=== PATIENT | male | born 1995 | race Caucasian/White ===

== ENCOUNTER 2016-07-04 08:58 | Outpatient (CLI) ==
[2015-07-14 10:41] VITALS: BMI 27.7
--- NOTE | 2016-07-04 12:20 | MRI ---
EXAM: MRI right knee without contrast. HISTORY: Chronic pain right knee. Mainly around kneecap. No known recent injury. May have injure d 3 years ago jumping [place]. No right knee surgery.. TECHNIQUE: Using a local extremity coil on a high field strength magnet multiplanar multisequence m agnet resonance imaging was performed of the right knee without intravenous or intra-articular gadol inium contrast. COMPARISON: Four view plain film examination right knee 07/14/2015. FINDINGS: Within the medial compartment medial meniscus is intact without discrete surfacing menisc al tear. Medial compartment cartilage congruent and without underlying subchondral edema.. Within the lateral compartment the lateral meniscus is intact without discrete surfacing meniscal te ar. The lateral compartment cartilage congruent without focal underlying subchondral edema. Within the patellofemoral compartment the patella seated with intact patellar attachment of the medi al and lateral patellar retinaculum. Some artifacts seen within the subcutaneous soft tissues overl patrick the lateral patellar retinaculum. Correlate with operative history or for foreign body. Focal chondrosis over the medial facet the patella with some blistering/fissuring. The trochlear groove cartilage otherwise congruent without underlying subchondral edema. Physiologic amount of fluid right knee joint. No osteochondral loose bodies. Intact anterior and p osterior cruciate ligament fibers. Question mucoid degeneration anterior cruciate ligament and/or s equelae of prior sprain. Anterior cruciate ligament ganglion formation proximally. No anterior scott slation of the tibia with respect to the femur. The extensor mechanism is intact. Proximal patella r tendinosis. The medial collateral ligament as well as lateral collateral ligament complex and pos terolateral corner intact. Artifact within the subcutaneous soft tissues anterior medially at the jem int line. Correlate with operative history or for foreign body. IMPRESSION: No discrete surfacing meniscal tear. 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 Question mucoid degeneration anterior cruciate ligament and/or sequelae of prior sprain. Anterior c ruciate ligament ganglion formation proximally. Intact PCL. No anterior translation of the tibia w ith respect to the femur. Proximal patellar tendinosis. Artifact within the subcutaneous soft tissues anterolaterally and anteromedially. Correlate with op erative history or for foreign body.
== END 2016-07-04 08:59 | disposition home or self-care (01) ==
LOC: RAD 08:58
PROVIDERS: ATTEND Nurse Practitioner Family
DX: M25.561 Pain in right knee (principal)

== ENCOUNTER 2016-12-24 14:10 | Emergency (ER) ==
[2016-12-24 14:13] VITALS: BP 135/85; TEMP 98.1; BMI 25.7
--- NOTE | 2016-12-24 14:30 | ED.PDOC ---
General ED Provider: Dr. RAMIREZ [place] Chief Complaint: Chest Wall Injury/Pain Stated Complaint: right anterior lower chest wall pain x 4 days. No known trauma. Increased pain with breathing. No cough. No other respiratory symptoms. No fever or chills. No nausea or vomiting. No abdominal symptoms. Time Seen by Physician: 14:55 Mode of Arrival: Walk-In Information Source: Patient Exam Limitations: No limitations [facility] Documentation Reviewed and Agree: Yes Respiratory Complaint Exam - Respiratory Complaint/Exam Onset/Duration: 4 days Symptoms Are: Still present Timing: Constant Initial Severity: Moderate Current Severity: Moderate Location: Chest Aggravating: Reports: Exertion, Deep breaths Alleviating: Reports: None Associated Signs and Symptoms: Reports: Chest pain (left anterior chest wall pain only at site of pain) Related History: Denies: Similar episode History of Healthcare-Acquired Pneumonia: No Related Surgical History: Reports: None Pulmonary Embolism Risk Factors: None Cardiac Risk Factors: Reports: None Pseudomonas Risk Factors: Reports: None Tuberculosis Risk Factors: Reports: None Status Asthmaticus Risk Factors: Reports: None Home Oxygen Use: No Recent Stress Test: No Recent Echo/LV Function: No Current Antibiotic Use: No Current Asthma Medication Use: No Respiratory Distress: None Inadequate Respiratory Effort: No Dysphagia Present: No Stridor Present: No JVD Present: No Retractions: Not Present Diminished Breath Sounds: No Sinus Tenderness: None Grunting Respirations: No Kussmaul Respirations: No Differential Diagnoses: Chest Wall Pain, Bronchitis, Other (rib fracture or intercostal muscle strain) Quality Indicators For Pneumonia: SpO2 assessed, Vital signs, Mental status assessed Review of Systems - Review Of Systems Constitutional: Reports: No symptoms Respiratory: Reports: Other (localized anterior lower chest wall pain with breathing) Cardiac: Reports: No symptoms GI: Reports: No symptoms : Reports: No symptoms Musculoskeletal: Reports: Muscle pain (chest wall pain of CC) Skin: Reports: No symptoms Neurological: Reports: No symptoms All Other Systems: Reviewed and Negative Past Medical History - Past Medical History Previously Healthy: Yes Endocrine: Reports: None Cardiovascular: Reports: None Respiratory: Reports: Asthma Hematological: Reports: None Gastrointestinal: Reports: GERD Genitourinary: Reports: None Neuro/Psych: Reports: None Musculoskeletal: Reports: None (HAD A LACERATION RIGHT MEDIAL KNEE THREE YEARS AGO) Cancer: Reports: None - Surgical History General Surgical History: Reports: None, Hernia Repair (HERNIA REAPAIR ) - Family History Family History: Reports: None - Social History Smoking Status: Current some day smoker Amount Smokes or Chewing Tobacco Used Daily: occasional cigarette Hx Substance Use: No Alcohol Screening: None Lives: With family - Immunizations Tetanus Shot up to Date: Yes Influenza Vaccine within 12 Months: No Pneumococcal Vaccine up to Date: No Physical Exam - Physical Exam Appearance: Well-appearing, Well-nourished Ill-appearing: None Pain Distress: Moderate Respiratory: Airway patent, Breath sounds clear, Breath sounds equal, Respirations nonlabored Cardiovascular: RRR, Pulses normal, No rub, No murmur GI/: Soft, Nontender, No masses, Bowel sounds normal, No Organomegaly Musculoskeletal: Normal strength (local tenderness of left anterior lower chest wall), ROM intact, No edema, No calf tenderness Skin: Warm, Dry, Normal color Neurological: Sensation intact, Motor intact, Reflexes intact, Cranial nerves intact, Alert, Oriented Psychiatric: Affect appropriate, Mood appropriate Interpretation - Radiology Interpretation Radiology Interpretation By: Radiologist Radiology Results: Negative Exam Interpreted: Other Xray Comments: left ribs with PA chest Critical Care Note - Critical Care Note Total Time (mins): 0 Course - Course Orders, Labs, Meds: Orders Category Date Time Status RIBS, W/PA CHEST LEFT Stat RADS 12/24/16 14:58 Completed Vital Signs: Temp Pulse Resp BP Pulse Ox 12/24/16 14:10 98.1 F 81 20 135/85 96 Departure - Departure Time of Disposition: 15:44 Disposition: HOME SELF-CARE Discharge Problem: Intercostal muscle strain Qualifiers: Encounter type: initial encounter Qualified Code(s): S29.011A - Strain of muscle and tendon of front wall of thorax, initial encounter Instructions: Chest Wall Pain (ED) Condition: Good Pt referred to PMD for follow-up: No (See doctor if no better in one week) Additional Instructions: Avoid heavy lifting, pushing, or pulling for one week Allergies/Adverse Reactions: Allergies No Known Allergies Allergy (Verified 12/24/16 14:15) Home Medications: Ambulatory Orders Acetaminophen with Codeine [Tylenol #3 Tab] 1 tab PO Q4H PRN #20 tablet Disposition Discussed With: Patient
--- NOTE | 2016-12-24 15:25 | DI ---
Exam: Chest and left ribs. HISTORY: Lower left anterior rib pain. COMPARISON: None. FINDINGS: A frontal view the chest. AP oblique views of the left ribs. There are no displaced rib fractures. There is no pneumothorax. No evidence of pulmonary contusion. The lungs are clear witho ut consolidation or effusion. The heart size is within normal limits. The soft tissues are normal. IMPRESSION: Normal left ribs.
== END 2016-12-24 16:09 | disposition home or self-care (01) ==
LOC: ED 14:10
DX: S29.011A Strain of muscle and tendon of front wall of thorax, initial encounter (principal); F17.210 Nicotine dependence, cigarettes, uncomplicated
CPT/HCPCS: 99283

== ENCOUNTER 2018-06-02 11:22 | Emergency (ER) ==
[2018-06-02 11:25] VITALS: BP 137/85; TEMP 98; BMI 35.4
[2018-06-02] MEDS ORDERED: MOTRIN PO STA (11:54)
--- NOTE | 2018-06-02 11:56 | ED.PDOC ---
General ED Provider: Dr. CAILIN HARRIS Chief Complaint: Ankle Pain/Injury Stated Complaint: Patient is a 22 year old male who comes to the ER with left ankle pain without injury Time Seen by Physician: 11:55 Mode of Arrival: Walk-In Information Source: Patient Exam Limitations: No limitations Primary Care Provider: ERLINDA YOUNG Nursing and Triage Documentation Reviewed and Agree: Yes Does patient meet sepsis criteria?: No System Inflammatory Response Syndrome: Not Applicable Sepsis Protocol: For patient's 13 years and over: Temp is 96.8 and below OR 101 and greater Pulse >90 BPM Resp >20/minute Acutely Altered Mental Status Are patient's symptoms suggestive of a new infection, such as: -Pneumonia -Skin, Soft Tissue -Endocarditis -UTI -Bone, Joint Infection -Implantable Device -Acute Abdominal Infection -Wound Infection -Meningitis -Blood Stream Catheter Infection -Unknown Review of Systems - Review Of Systems Constitutional: Reports: No symptoms Eyes: Reports: No symptoms Ears, Nose, Mouth, Throat: Reports: No symptoms Respiratory: Reports: No symptoms Cardiac: Reports: No symptoms GI: Reports: No symptoms : Reports: No symptoms Musculoskeletal: Reports: Joint pain Skin: Reports: No symptoms Neurological: Reports: No symptoms Endocrine: Reports: No symptoms Hematologic/Lymphatic: Reports: No symptoms All Other Systems: Reviewed and Negative Past Medical History - Past Medical History Previously Healthy: Yes Endocrine: Reports: None Cardiovascular: Reports: None Respiratory: Reports: Asthma Hematological: Reports: None Gastrointestinal: Reports: GERD Genitourinary: Reports: None Neuro/Psych: Reports: None Musculoskeletal: Reports: Other (HAD A LACERATION RIGHT MEDIAL KNEE THREE YEARS AGO, Previous left ankle sprain from stepping in a Man hole2-3 years ago. ) Cancer: Reports: None - Surgical History General Surgical History: Reports: Hernia Repair (HERNIA REAPAIR INFANT) - Family History Family History: Reports: None - Social History Smoking Status: Current some day smoker Hx Substance Use: No Alcohol Screening: None - Immunizations Influenza Vaccine within 12 Months: No Pneumococcal Vaccine up to Date: No Physical Exam - Physical Exam Appearance: Obese Pain Distress: Moderate Neck: Supple Respiratory: Airway patent, Breath sounds clear, Breath sounds equal, Respirations nonlabored Cardiovascular: RRR, Pulses normal, No rub, No murmur Musculoskeletal: Limited ROM (tendernes to palpation on the left ankle. ) Skin: Warm, Dry Neurological: Alert, Oriented Psychiatric: Anxious Interpretation - Radiology Interpretation Radiology Interpretation By: Radiologist Radiology Results: Negative Exam Interpreted: Other (left ankle ) Critical Care Note - Critical Care Note Total Time (mins): 0 Course - Course Orders, Labs, Meds: Orders Category Date Time Status Ibuprofen [Motrin] MEDS 06/02/18 11:54 Discontinued 800 mg PO ONCE STA ANKLE, LEFT MIN 3 VIEWS Stat RADS 06/02/18 11:55 Completed Medications Discontinued Medications Generic Name Dose Route Start Last Admin Trade Name Freq PRN Reason Stop Dose Admin Ibuprofen 800 mg 06/02/18 11:54 06/02/18 12:05 Motrin PO 06/02/18 11:55 800 mg ONCE STA Administration Vital Signs: Temp Pulse Resp BP Pulse Ox 06/02/18 11:22 98.0 F 73 20 137/85 98 Departure - Departure Time of Disposition: 12:27 Disposition: HOME SELF-CARE Discharge Problem: Ankle sprain Qualifiers: Encounter type: initial encounter Involved ligament of ankle: unspecified ligament Laterality: left Qualified Code(s): S93.402A - Sprain of unspecified ligament of left ankle, initial encounter Instructions: Ankle Sprain (ED) Condition: Stable Pt referred to PMD for follow-up: Yes IPMP verified?: No Additional Instructions: Take Medications as prescribed Rest Follow up with PCP in 3 days Prescriptions: Ibuprofen [Motrin] 600 mg PO Q6H PRN #30 tablet PRN Reason: Analgesia Allergies/Adverse Reactions: Allergies No Known Allergies Allergy (Verified 06/02/18 11:25) Home Medications: Ambulatory Orders Ibuprofen [Motrin] 600 mg PO Q6H PRN #30 tablet 06/02/18 Disposition Discussed With: Patient
--- NOTE | 2018-06-02 12:36 | DI ---
EXAM: Ankle. Side: Left Views: Three,(AP, lateral and oblique). HISTORY: The ankle pain. No acute injury. COMPARISON: None. FINDINGS: Bones: Normal anatomic alignment. No fracture or dislocation. Mineralization: Normal. Joints: Normal. No arthritis. Other findings: None. IMPRESSION: No acute fracture or dislocation.
== END 2018-06-02 12:51 | disposition home or self-care (01) ==
LOC: ED 11:22
DX: S93.402A Sprain of unspecified ligament of left ankle, initial encounter (principal); X50.1XXA Overexertion from prolonged static or awkward postures, initial encounter; F17.210 Nicotine dependence, cigarettes, uncomplicated
CPT/HCPCS: 99283